=== PATIENT | female | born 1955 | race Caucasian/White ===

== ENCOUNTER 2016-12-05 04:47 | Inpatient (IN) | payer BC ==
--- NOTE | ~2016-12-05 | OP ---
Record Of Operation [facility] [address] [place]. [address] NAME: GALINA GUNTER : 57 STATUS : ADM IN PAT#: [id number] AGE: 61 ADM/REG DATE : 12/05/16 MR#: [id number] REPORT SERV DATE: 12/05/16 DICTATED BY: JOSE MCCLURE DATE: 12/05/16 REPORT STATUS : Draft TRANSCRIBED BY: MODL DATE: 12/05/16 DATE OF PROCEDURE: PREOPERATIVE DIAGNOSES: 1. Acute cauda equina syndrome with paraparesis. 2. Severe spinal stenosis, L1-2 and L2-3; moderate spinal stenosis, L3-4. 3. Flat back deformity. 4. Prior fusion, L4-S1. POSTOPERATIVE DIAGNOSES: 1. Acute cauda equina syndrome with paraparesis. 2. Severe spinal stenosis, L1-2 and L2-3; moderate spinal stenosis, L3-4. 3. Flat back deformity. 4. Prior fusion, L4-S1. PROCEDURES: 1. Navigation-assisted surgery. 2. Hardware removal, L4. 3. Complete laminectomy, foraminotomy, facetectomy at L1-2, L2-3, L3-4. 4. Geena posterior column osteotomy at L1, L2, L3. 5. Posterolateral spinal fusion with Solera titanium segmental instrumentation, L1 to L4. SURGEON: Jose Mcclure D.O. STRAINER CLEANER: Quique Kelly. ANESTHESIA: General. BLOOD LOSS: 400 mL. INDICATION FOR SURGERY: Indication for surgery and risks were explained. They are listed in the history and physical, see that for detail. DESCRIPTION OF PROCEDURE: Antibiotic prophylaxis given. Neurophysiology monitoring leads inserted. The patient was brought to the operative suite. General anesthetic including endotracheal intubation was administered. Magaña catheter was placed with sterile technique. The patient was clam shelled into a Earnest spine frame, rotated to 180 degrees into a prone position. Bony prominences were carefully padded. Thoracolumbar spine scrubbed with Hibiclens solution. DuraPrep was painted. Sterile drapes applied. With headlight illumination and loupe magnification, a midline incision was carried out from T12 to L5. The fascia was divided in the midline. The paraspinous muscles subperiosteally elevated and retracted laterally while exposing all the way to the tip of the transverse processes from L1 to L5. Previous hardware at L4-5 was easily identified. We used a carbide bit and transected the bill that was already in place just above the screw of L5 bilateral. The bill and screw at L4 was removed. I then started distally and worked Record Of Operation [facility] [address] [place]. [address] NAME: GALINA GUNTER : 57 STATUS : ADM IN PAT#: [id number] AGE: 61 ADM/REG DATE : 12/05/16 MR#: [id number] REPORT SERV DATE: 12/05/16 DICTATED BY: JOSE MCCLURE DATE: 12/05/16 REPORT STATUS : Draft TRANSCRIBED BY: MODVelvet DATE: 12/05/16 proximally and there has been some hemilaminectomy on the left side at L3-4. I then entered at the right side of L3-4 and worked from distal to proximal removing the entire lamina. I completed a Geena osteotomy at L3 bilateral. Thecal sac was completely exposed and decompressed the lateral recess, the foramen and the central canal and I continued to move from distal to proximal. There was moderate to severe stenosis at L3-4, but at L2-3 the patient's canal was completely obliterated. There was severe ligamentum flavum and facet hypertrophy. The facet hypertrophy had actually completely blocked the canal, was abutting with each other in the midline. I resected through the pars interarticularis removing the facets and the inferior articular process of the lamina of L2 left and right side and carried out a Geena osteotomy at L2. All this was done with a combination of a cutting burs, molly burs, and 2 and 3 mm Kerrison rongeurs. I slowly and meticulously worked from L2 to L1 completing the same hemilaminectomy, foraminotomy, facetectomy and Geena osteotomy bilateral. There was also severe canal obliteration at L1-2 as well as L2-3. After the decompression, the thecal sac was expanded and we had no CSF leak or any other complications. The wounds were irrigated copiously. Navigational assistance was utilized during decompression. We felt that navigational system was mandatory to not only identify the anatomy that was so altered by the disease process, but also to carry out the safest and most precise dissection. We had registered the navigational system by placing a registration clamp distally and carried out intraoperative CT scan with the O-arm CT information used to register the navigational system. Again, with navigational assistance, we created a airline pilot hole through the pedicle of L1, 2, 3, and we tapped the pedicles. I decorticated the transverse process in the outer portion of the facet joints from L1-L4. Polyaxial Solera screws placed at L1, 2, 3, 4 bilaterally. A titanium contoured bill was placed to allow some correction of the flat back deformity. Set screws were inserted and tightened with a torque wrench providing rigid stability. Finally, we used a combination of the local bone graft allograft and extra-small dosage of bone protein from L1-L4 bilaterally. Intraoperative CT scan with O-arm repeated showing excellent position of all implants. The vancomycin powder was placed on the wound. The myofascial layer was closed with double looped #1 PDS suture. Subcutaneous tissue closed with 2-0 Vicryl sutures, 2-0 vertical mattress nylon suture used for skin closure. Sterile dressings applied. The patient returned to supine position, awakened, extubated, taken to recovery room in satisfactory condition having tolerated the procedure well. Sponge, needle, and instrument counts were correct. No intraoperative complications noted. /KRISSY Jose Mcclure D.O. / [id number] Record Of Operation [address] [address] NAME: GALINA GUNTER : 57 STATUS : ADM IN [facility]#: [id number] AGE: 61 ADM/REG DATE : 12/05/16 MR#: [id number] REPORT SERV DATE: 12/05/16 DICTATED BY: JOSE MCCLURE DATE: 12/05/16 REPORT STATUS : Draft TRANSCRIBED BY: KRISSY DATE: 12/05/16 CC: Aly Hood, DO
--- NOTE | ~2016-12-05 | CN ---
Consultation Report [facility] [address] [place]. [address] NAME: GALINA GUNTER : 57 STATUS : ADM IN PAT#: [id number] AGE: 61 ADM/REG DATE : 12/05/16 MR#: [id number] REPORT SERV DATE: 12/05/16 DICTATED BY: EDWARD BOND DATE: 12/05/16 REPORT STATUS : Draft TRANSCRIBED BY: MODL DATE: 12/05/16 MEDICAL CONSULTATION DATE OF CONSULTATION: IDENTIFYING DATA: A 61-year-old white female, whose PCP is Dr. Thiago Johnson, pain management Dr. Singh, ortho spine surgeon, Dr. Riley. REASON FOR CONSULTATION: Diabetes mellitus management. HISTORY OF PRESENT ILLNESS: This history of present illness is obtained by talking with the patient and her at the bedside as well as reviewing [facility] and the records that came from [facility] [place] as well as the current paper chart. The patient was admitted urgently in transfer from [facility] [place] for cauda equina syndrome. She reportedly had lumbar spine surgery several years ago with good success, then she has had several weeks of worsening back pain, worsening weakness in her legs with numbness in her perineum. She has had some falls. She has had difficulty with urinary incontinence. She went to the emergency room at [facility] in [place]. They did a CT scan of the lumbar spine, which showed severe degenerative changes throughout the lumbar spine with severe spinal stenosis at L1-L2 and L2-L3, moderate at T12-L1, some severe right-sided foraminal stenosis at L5-S1, at L1-L2 severe stenosis with resultant trapping and compression of the cauda equina fibers. She was transferred down here for urgent orthopedic spine surgery, which was accomplished last night. Review of the operative note last night indicates that the patient was given Solu-Medrol 125 mg and she also had insulin infusion. The patient states that two weeks ago, she had bursitis and was given a steroid shot in her left hip. She also states, she was on a steroid dose pack day #2, when she went to [facility] [place] yesterday and she states in the ER at [facility] [place] they gave her a steroid shot as well. She has had diabetes since she was about [age] two years ago. She has been on tablets for a while, now she has transitioned over to insulin. She states her A1c have been high. She does not know when her recent one is. She states, she has been having frequent low blood sugar reactions. She does have neuropathy, but she thinks it is more from her back than her diabetes. She has had previous cataracts and she is not sure if she had retinopathy. On review of systems, she has had some postop upper lip swelling in the center. She has had recent nasal congestion. She has had some falls. She has occasional nausea when she takes hydrocodone. She recently thought she had perineal yeast infection and her PCP gave her some Diflucan. She has some chronic ankle edema. She has some rash in the perineal area. She has gained weight from 200 to 238 pounds in the last year. She denies recent fever, chest pain, shortness of breath, abdominal pain, vomiting, dysuria, tick bites. Consultation Report [facility] [id number] [place]. [address] NAME: GALINA GUNTER : 57 STATUS : ADM IN [facility]#: [id number] AGE: 61 ADM/REG DATE : 12/05/16 MR#: [id number] REPORT SERV DATE: 12/05/16 DICTATED BY: EDWARD BOND DATE: 12/05/16 REPORT STATUS : Draft TRANSCRIBED BY: KRISSY DATE: 12/05/16 ALLERGIES: SHE STATES, SHE CANNOT TOLERATE ERYTHROMYCIN OR OXYCODONE. SHE STATES, STATINS GIVE HER SEVERE MUSCLE PAIN. PAST MEDICAL HISTORY: She denies asthma, COPD, heart disease, stroke, seizure, peptic ulcer, liver disease, cancer. She states that, she has had hypertension, hypothyroidism. She has a history of depression and anxiety, osteoarthritis. She has had previous kidney stone at age 41. She has obstructive sleep apnea and she wear CPAP at home, but not oxygen. She has a history of tendency for constipation and less so for diarrhea. HOME MEDICATIONS: She takes Mobic once a day and some [id number] stool softener or laxative. She is on amlodipine 10 mg every morning, Cymbalta 60 mg twice a day. She takes an estrogen a tablet at bedtime, gabapentin 300 mg t.i.d., Brashear 7.5 three to four times a day for pain management, NovoLog she states she takes 50 units in the morning and 40 units in the evening, Levemir 30 units at bedtime, levothyroxine 50 mcg daily, losartan 50 mg daily, multivitamin once a day. PAST SURGICAL HISTORY: She has had multiple lumbar spine surgeries. She had a left total hip arthroplasty. She has had a hysterectomy, cholecystectomy, cataract resection, and ESWL for kidney stones. SOCIAL HISTORY: She has no tobacco intake history. She drinks very little alcohol. 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 She is and her is at the bedside. FAMILY HISTORY: Mother with melanoma and young and mother reportedly had mental illness problems. Father, COPD. Brother with celiac disease. Sister with back problems. DIAGNOSTIC DATA: Sodium 138.9, potassium 3.8. chloride 104. CO2 is 25, BUN 21, creatinine 1.05, glucose 271, calcium 8.2. The white count is 15.8, hemoglobin 13.7, platelets 388,000. At [facility] [place] yesterday, her TSH was 1.36 which is normal. Urinalysis had glucose greater than 1000 and trace ketones. PHYSICAL EXAMINATION: VITAL SIGNS: Pulse 90, respirations 18, blood pressure 140/82, O2 saturation is 98% on 2 L. GENERAL: Well-developed female, who appears in mild pain, but cooperative. HEENT: Head is atraumatic. Pupils are equal, round, and reactive to light. Extraocular motions are intact. No scleral icterus noted. Ears, externally unremarkable. No inflammatory changes and normal hearing bilaterally. Nose, noninflamed externally. Septum midline. Nares patent. Mouth, moist. Good gag. No redness of the throat gums or lips. NECK: She has at triple-lumen IV site in the right side of her neck. No bruits. No mass is noted in the neck. LUNGS: Clear. Good air flow. No wheezes, no rhonchi. HEART: Regular rate and rhythm without murmur, gallop, click, or rub. Consultation Report [address] [place]. [address] NAME: GALINA GUNTER : 57 STATUS : ADM IN [facility]#: [id number] AGE: 61 ADM/REG DATE : 12/05/16 MR#: [id number] REPORT SERV DATE: 12/05/16 DICTATED BY: EDWARD BOND DATE: 12/05/16 REPORT STATUS : Draft TRANSCRIBED BY: KRISSY DATE: 12/05/16 ABDOMEN: Bowel sounds are positive. Soft, nondistended, nontender. No masses. No organomegaly. EXTREMITIES: Warm. Good pulses. No clubbing, no cyanosis, no edema. No actively inflamed skin or joints. NEUROLOGIC: She is alert, oriented, cooperative with normal mentation and speech. Her motor strength in her hands is 3/5, in her feet 2/5. No Babinski. No clonus noted and cranial nerves 2 through 12 grossly normal. ASSESSMENT: 1. Diabetes mellitus type 2 for greater than thirty years with recent poor control reported by high A1cs, but also now worse due to steroids that she has been taking recently and currently. 2. Obesity with obstructive sleep apnea, on CPAP at home. 3. Chronic spine pain, on opiates. 4. Leukocytosis, probably related to steroids and stress. 5. Postop lumbar spine surgery. 6. Hypertension. 7. Hypothyroidism. 8. History of previous kidney stones. 9. See past medical history. PLAN: We will transition the patient off the current insulin infusion. We will put her on Levemir and NovoLog. We will hold her estrogens while she is less active. We have asked her to bring in her CPAP unit for sleep. Have Magaña catheter in place short-term. Next, we will check an A1c. Next, we have asked pharmacy to come and to try to update her home med list to make sure we have the full and complete list. LUPIS/KRISSY Edward Bond M.D. / [id number] CC: DO Thiago Pardo MD Scott Hodges, D.O.
--- NOTE | ~2016-12-05 | HP ---
History And Physical [facility] [id number] [place]. [address] NAME: GALINA GUNTER : 57 STATUS : PRE IN PAT#: [id number] AGE: 61 ADM/REG DATE : MR#: [id number] REPORT SERV DATE: 12/04/16 DICTATED BY: JOSE MCCLURE DATE: 12/04/16 REPORT STATUS : Draft TRANSCRIBED BY: MODL DATE: 12/04/16 DATE OF ADMISSION: 12/04/2016 CHIEF COMPLAINT: Acute paraparesis. HISTORY OF PRESENT ILLNESS: This is a 61-year-old female, known to me from the past who has had previous fusion at L3-L4 several years ago and then just two years ago had L4-S1 fusion. She has been doing very well, had minimal pain related to the spine but recently has developed lot of increasing amounts of back pain and severe weakness in her lower extremities. It started about three weeks ago, and she noticed real difficulties trying to climb stairs. She got to the point where she could not get up stairs and she had been staying in the bottom floor of her home because of the difficulty getting up steps. Then, this evening or today, she developed even worsening and complete weakness to the point she could not stand and weight bear on her legs. She has also had recent onset of numbness in her back and legs with perineal, perianal, perirectal numbness and tingling, weakness as well. She has had urinary and bowel incontinence. She went to the ER at [facility] and [place]. The CT scan was obtained which was reported to show a severe stenosis of 3 mm of the canal at L1-L2 and L2-L3. My associate, Dr. Aly Hood was contacted, to be on-call. He accepted her for transfer to [facility]. I have now taken the case for the remainder of the treatment. The patient does have documented acute cauda equina syndrome with true paraparesis. Admitted for urgent/emergent surgery including complete laminectomy, foraminotomy, facetectomy L1-L2, L2-L3 with posterior spinal fusion instrumentation L1-L3. I have gone over extensively with her the risks including but not limited to infection. There could be injury to the thecal sac, nerve root with numbness, tingling, weakness, paralysis, or even quadriplegia. Incidental durotomy, subsequent meningitis, arachnoiditis, or surgical drainage or repair could occur. Perioperative complications such as UTI, PE, pneumonia, PR, CVA, etc. were explained. Consent form is signed. PAST MEDICAL HISTORY: Includes diabetes mellitus type 2, exogenous obesity, hypertension, osteoarthritis, and hypothyroidism. PAST SURGICAL HISTORY: Abdominal hysterectomy, a left total hip arthroplasty, lumbar fusion x2. CURRENT MEDICATIONS: Include insulin, Amaryl, metformin, Zanaflex, Dilaudid 2 mg tablets, Bactrim, Januvia, potassium, gluconate, Starlix, multivitamins, Cozaar, , Cymbalta, estradiol, and Neurontin. ALLERGIES: OXYCODONE AND ERYTHROMYCIN. SOCIAL HISTORY: She is and has been working at the [employer], and does not use any tobacco or alcohol. FAMILY HISTORY: Noncontributory. REVIEW OF SYSTEMS: History And Physical [address] [address] NAME: GALINA GUNTER : 57 STATUS : PRE IN [facility]#: [id number] AGE: 61 ADM/REG DATE : MR#: [id number] REPORT SERV DATE: 12/04/16 DICTATED BY: JOSE MCCLURE DATE: 12/04/16 REPORT STATUS : Draft TRANSCRIBED BY: KRISSY DATE: 12/04/16 She wears corrective lenses. PHYSICAL EXAMINATION: VITAL SIGNS: She is 5 feet 6 inches, 238 pounds. GENERAL: Alert cooperative, well oriented. She is able to communicate well and has followed all directions appropriately. HEENT: She is normocephalic. Pupils are equal and reactive to light. Extraocular muscles are intact. Oral exam is grossly normal. NECK: Her neck has decreased range of motion. She has a negative Lhermitte sign. We purposely tried to have her hyperextend her neck because she did give some history of having some numbness and tingling recently in her arms and in fact, had an MRI scheduled for cervical spine for this coming week but this has changed her plans. She had a negative Lhermitte's. EXTREMITIES: The motor strength in the upper extremities is normal. There is no hyperreflexia in the upper extremities. Cinthia sign is negative. In the lower extremities, she has strength of only 3-/5 in the iliopsoas, adductor, abductors, quadriceps, hamstrings, tibialis anterior and gastrocsoleus both lower extremities are markedly weak. She has some sensory level at approximately L1 which is fitting with the CT findings. The patient's reflexes are absent. Toes are downgoing. There is no ankle clonus found. Orthopedically, she has no pain with moving hips, knees, or ankles. There are weak pulses in all four extremities. No abnormal skin lesions are found. ASSESSMENT/RECOMMENDATION: Acute cauda equina syndrome with paraparesis. Recommendation listed above. RIMA/KRISSY Jose Mcclure D.O. / [id number] CC: Aly Hood DO
[2016-12-05 04:36] LABS: BASOPHILS 0.1 %; BASOPHILS ABSOLUTE 0.01 10/3/uL (0.0-0.16); EOSINOPHILS 0 %; IMMATURE GRANULOCYTES 0.9 %; IMMATURE GRANULOCYTES ABSOLUTE 0.14 10/3/uL (0.0-0.11); LYMPHOCYTES 8.9 %; LYMPHOCYTES ABSOLUTE 1.41 10/3/uL (0.67-4.30); MEAN CORPUS HGB CONC 34.9 g/dL (32.0-36.0); MEAN CORPUSCULAR HEMOGLOB 30.7 pg (26.0-34.0); MEAN CORPUSCULAR VOLUME 88.1 fL (80-100); MEAN PLATELET VOLUME 9.8 fL (9.2-13.0); MONOCYTES 1.8 %; MONOCYTES ABSOLUTE 0.29 10/3/uL (0.21-1.20); NEUTROPHILS 88.3 %; NEUTROPHILS ABSOLUTE 13.91 10/3/uL (2.02-8.40); PLATELET COUNT 388 10/3/uL (150-400); WHITE BLOOD CELLS 15.8 10/3/uL (4.5-10.5)
[2016-12-05 04:38] LABS: HEMATOCRIT 39.3 % (36.0-48.0); HEMOGLOBIN 13.7 g/dL (12.0-16.0); MANUAL DIFF NO %; RED CELL COUNT 4.46 10/6/uL (4.0-5.6)
[2016-12-05 04:46] LABS: BUN (BLOOD UREA NITROGEN) 21 MG/DL (6-23); CALCIUM, SERUM 8.2 MG/DL (8.5-10.4); CHLORIDE, SERUM 104 MMOL/L (96-112); CO2 (CARBON DIOXIDE) 25 MMOL/L (24-34); CREATININE 1.05 MG/DL (0.55-1.02); GFR AFRICAN AMERICAN 67 ML/MIN (>=60); GFR NON AFRICAN AMERICAN 58 ML/MIN (>=60); GLUCOSE, SERUM 273 MG/DL (60-99); POTASSIUM, SERUM 3.8 MMOL/L (3.5-5.3); SODIUM, SERUM 139 MMOL/L (135-148)
[~2016-12-05 04:47] MED LIST: ALEVE220 MG PO; AMARYL2 PO; ASA5GR PO; AVALIDE1 TAB PO; AVANDIA8 MG PO; BACDS PO; COZ50 PO; CYMBALTA60 PO; DIL2TAB PO; ESTRATESHS PO; GLUCOPHAGE1000 MG PO; IVVIBRA PO; JANUVIA100 MG PO; LEVOTHROID50 MCG PO; LEVOTHYROXIN50 MCG PO; LIPITOR10 PO; LORTAB 5 PO; METHOC750B PO; MULTIPLE VIT PO; NEUR300 PO; NORCO1 TA1 PO; NORCO1 TA2 PO; NORV10 PO; NOVOPEN SC; POT GLUCONAT595 M1 OR; STARLIX120 PO; ZANAFLEX 4 MG TA4 MG PO
[2016-12-05] MEDS ORDERED: NORV10 PO (14:56)
[2016-12-05] MEDS ORDERED: CYMBALTA60 PO (14:57)
[2016-12-05] MEDS ORDERED: NEUR300 PO (14:59)
[2016-12-05] MEDS ORDERED: MOBIC15 MG PO (14:59)
[2016-12-05] MEDS ORDERED: ESTRATEST PO (14:59)
[2016-12-05] MEDS ORDERED: MEDROLPAK4 (14:59)
[2016-12-05] MEDS ORDERED: NORCO1 TA2 PO (15:00)
[2016-12-05] MEDS ORDERED: ZOFRAN4 PO (15:00)
[2016-12-05] MEDS ORDERED: ASABAYER PO (15:00)
[2016-12-05] MEDS ORDERED: COZ50 PO (15:01)
[2016-12-05] MEDS ORDERED: MULTIVIT/MIN PO (15:01)
[2016-12-05] MEDS ORDERED: SYN.05 PO (15:01)
[2016-12-05] MEDS ORDERED: LEVEMFLXPN SC (15:01)
[2016-12-05] MEDS ORDERED: NOVOLOGMIX SC ×2 (15:01)
[2016-12-06 05:22] LABS: HEMATOCRIT 35.9 % (36.0-48.0); HEMOGLOBIN 12.1 g/dL (12.0-16.0); MEAN CORPUS HGB CONC 33.7 g/dL (32.0-36.0); MEAN CORPUSCULAR HEMOGLOB 30.3 pg (26.0-34.0); MEAN CORPUSCULAR VOLUME 89.8 fL (80-100); PLATELET COUNT 352 10/3/uL (150-400); RBC DISTRIBUTION WIDTH 14.5 % (12.0-16.0); WHITE BLOOD CELLS 16.2 10/3/uL (4.5-10.5)
[2016-12-06 05:24] LABS: MANUAL DIFF YES %
[2016-12-06 05:35] LABS: CALCIUM, SERUM 7.9 MG/DL (8.5-10.4); CHLORIDE, SERUM 103 MMOL/L (96-112); CREATININE 0.69 MG/DL (0.55-1.02); GFR AFRICAN AMERICAN 110 ML/MIN (>=60); GFR NON AFRICAN AMERICAN 95 ML/MIN (>=60); SODIUM, SERUM 141 MMOL/L (135-148)
[2016-12-06 05:36] LABS: BUN (BLOOD UREA NITROGEN) 13 MG/DL (6-23); CO2 (CARBON DIOXIDE) 30 MMOL/L (24-34); GLUCOSE, SERUM 200 MG/DL (60-99)
[2016-12-06 05:57] LABS: BAND NEUTROPHILS 1 %; LYMPHOCYTES 22 %; LYMPHOCYTES ABSOLUTE (CALC) 3.56 10/3/uL (0.67-4.30); MONOCYTES 6 %; MONOCYTES ABSOLUTE (CALC) 0.97 10/3/uL (0.21-1.20); NEUTROPHILS ABSOLUTE (CALC) 11.66 10/3/uL (2.02-8.40); SEGMENTED NEUTROPHIL (0) 71 %; TOTAL NUCLEATED CELLS 100
[2016-12-06 05:58] LABS: PLATELET ESTIMATE ADQ (ADEQUATE); RBC MORPHOLOGY NORM (NORMAL)
[2016-12-07 05:22] LABS: BUN (BLOOD UREA NITROGEN) 12 MG/DL (6-23); CALCIUM, SERUM 7.9 MG/DL (8.5-10.4); CHLORIDE, SERUM 102 MMOL/L (96-112); CO2 (CARBON DIOXIDE) 32 MMOL/L (24-34); CREATININE 0.62 MG/DL (0.55-1.02); GFR AFRICAN AMERICAN 114 ML/MIN (>=60); GFR NON AFRICAN AMERICAN 98 ML/MIN (>=60); POTASSIUM, SERUM 3.7 MMOL/L (3.5-5.3); SODIUM, SERUM 141 MMOL/L (135-148)
[2016-12-07 05:23] LABS: GLUCOSE, SERUM 148 MG/DL (60-99)
[2016-12-07 05:29] LABS: BASOPHILS 0.2 %; BASOPHILS ABSOLUTE 0.03 10/3/uL (0.0-0.16); EOSINOPHILS ABSOLUTE 0.13 10/3/uL (0.0-0.53); HEMOGLOBIN 12.1 g/dL (12.0-16.0); IMMATURE GRANULOCYTES 0.6 %; IMMATURE GRANULOCYTES ABSOLUTE 0.08 10/3/uL (0.0-0.11); LYMPHOCYTES 25.3 %; LYMPHOCYTES ABSOLUTE 3.21 10/3/uL (0.67-4.30); MANUAL DIFF NO %; MEAN CORPUS HGB CONC 33.6 g/dL (32.0-36.0); MEAN CORPUSCULAR HEMOGLOB 30.5 pg (26.0-34.0); MEAN CORPUSCULAR VOLUME 90.7 fL (80-100); MEAN PLATELET VOLUME 10.2 fL (9.2-13.0); NEUTROPHILS 61.9 %; NEUTROPHILS ABSOLUTE 7.83 10/3/uL (2.02-8.40); PLATELET COUNT 319 10/3/uL (150-400); RBC DISTRIBUTION WIDTH 14.4 % (12.0-16.0); RED CELL COUNT 3.97 10/6/uL (4.0-5.6); WHITE BLOOD CELLS 12.7 10/3/uL (4.5-10.5)
[2016-12-07] MEDS ORDERED: METHOC500B PO (09:55)
[2016-12-07] MEDS ORDERED: NORCO1 TA2 PO (09:55)
[2016-12-07] MEDS ORDERED: NOVOLOG SC (12:01)
[2016-12-07] MEDS ORDERED: NOVOPENMIX SC (12:03)
== END 2016-12-07 12:42 | disposition home or self-care (01) | DRG 30 ==
LOC: 3SO 04:47
PROVIDERS: Hospitalist; Orthopaedic Surgery
PROC: 0SG10Z1 (ICD-10-PCS; principal; 2016-12-05)
PROC: 4A11X4G Monitoring of Peripheral Nervous Electrical Activity, Intraoperative, External Approach (ICD-10-PCS; 2016-12-05)
DX: G83.4 Cauda equina syndrome (principal); I10 Essential (primary) hypertension; G82.20 Paraplegia, unspecified; M40.36 Flatback syndrome, lumbar region; E11.9 Type 2 diabetes mellitus without complications; E66.9 Obesity, unspecified; Z68.39 Body mass index [BMI] 39.0-39.9, adult; E03.9 Hypothyroidism, unspecified
CPT/HCPCS: 71010; 80048; 82962; 83036; 85025; 88300; 88304; 88311; 97116-GP; 97161-GP; A9270-GY; C1713; J0690; J1170; J2250; J2370; J2405; J2765; J2930; J3010; J3370